=== PATIENT | female | born 1980 | race Caucasian/White ===

== ENCOUNTER 2024-05-14 13:33 | Emergency (ER) | payer OTHER, SELFPAY ==
[2024-05-14] VITALS (8 sets, daily range): BP systolic 126–146; BP diastolic 75–98; PULSE 62–80; RESP 13–21; TEMP 36.1–36.7; O2SAT 96–99; BMI 41.5
--- NOTE | 2024-05-14 13:36 | EKG12_ITS ---
Test Reason : CP Blood Pressure : / mmHG Vent. Rate : 075 BPM Atrial Rate : 075 BPM P-R Int : 180 ms QRS Dur : 080 ms QT Int : 388 ms P-R-T Axes : 035 042 022 degrees QTc Int : 433 ms Normal sinus rhythm Normal ECG Confirmed by ROBE SMITH, COLIN ([id number]), continuity editor TRACE CHU ([id number]) on 05/17/2024 1:56:36 PM Referred By: Confirmed By:COLIN NAGEL MD
--- NOTE | 2024-05-14 13:36 | RAD_ITS ---
STUDY: X-RAY CHEST REASON FOR EXAM: Female, 43 years old. chest pain TECHNIQUE: Single AP portable view of the chest. COMPARISON: 04/02/2024 FINDINGS: The lungs are clear and expanded. There is no demonstrated pleural abnormality. Normal size heart. Normal mediastinum and emelia. Normal visualized pulmonary arteries. Normal visualized aortic arch and descending thoracic aorta. There is a levoscoliosis of the thoracic spine. Normal visualized ribs, clavicles, and shoulders. There is no demonstrated abnormality of the visualized soft tissue structures of the upper abdomen. RAD/Chest 1 View (Portable) IMPRESSION: Normal x-ray examination of the chest. Electronically Signed: Fabio Abebe MD at 16:42 EDT ,
[2024-05-14 13:53] LABS: Absolute Lymphocyte Count 2.54 X10^3/uL (0.83-4.51); Absolute Neutrophil Count 5.1 X10^3/uL (2.0-7.7); Basophil# 0.03 X10^3/uL; Basophil% 0.4 % (0-1); Eosinophil# 0.15 X10^3/uL; Eosinophils% 1.8 % (0-5); Hematocrit 44.1 % (37-47); Hemoglobin 14.7 g/dL (12.0-15.0); Lymphocyte # 2.54 X10^3/ul (0.83-4.51); Lymphocyte % 30.6 % (19-41); Mean Corp Hgb Conc 33.3 g/dL (32-36); Mean Corpuscular Hgb 30.7 pg (27.0-32.0); Mean Corpuscular Volume 92.1 fL (81-99); Mean Platelet Vol. 9.7 fl (6.2-12.0); Monocyte# 0.46 X10^3/uL; Monocyte% 5.5 % (0-10); NRBC Flagged by Analyzer 0 % (0-5); Neutrophil # 5.08 X10^3/uL (2.7-7.7); Neutrophil % 61.3 % (47-70); Platelet Count 341 K/mm3 (150-450); RBC Distribution Width CV 11.9 % (11.6-14.6); RBC Distribution Width SD 39.9 fl (35.1-43.9); Red Blood Count 4.79 M/mm3 (4.2-5.4); White Blood Count 8.3 K/mm3 (4.4-11.0)
[2024-05-14 14:11] LABS: Anion Gap 9 (5-15); BUN 14 mg/dL (7-18); BUN/Creat Ratio 12.8 RATIO (10-20); Calcium,Total 9.5 mg/dL (8.5-10.1); Chloride 106 mmol/L (98-107); Creatinine, Serum 1.09 mg/dL (0.55-1.02); EST Glomerular Filtration Rate 59 mL/min (>60); Est Glom Filt Rate - Afr Amer 71 mL/min (>60); Estimated Creatinine Clearance 82.33 ml/min; Glucose 157 mg/dL (74-106); Potassium 3.9 mmol/L (3.5-5.1); Sodium Level 138 mmol/L (136-145); Troponin-I HS (w/2H Reflex) 5 pg/mL (3.0-54.0)
--- NOTE | 2024-05-14 15:11 | EDS_ITS ---
HPI History of Present Illness Chief Complaint: Chest Pain Narrative Narrative: Chief complaint and HPI: Chest pain. 43-year-old female with history of HTN, HLD presents for evaluation of chest pain. Onset of symptoms about 30 minutes prior to arrival. Patient states she was waiting in line for food when she developed sharp midsternal chest pain. Pain does not radiate anywhere. Not worse with inspiration or exertion. Admits to some mild shortness of breath. Already improving. She denies any fever, chills, URI symptoms, abdominal pain, nausea, vomiting, dysuria. Patient does vape with nicotine. Patient does endorse having 2 episodes of diarrhea today. Denies a history of DVT/PE, blood clotting disorder, recent trauma or surgery, unilateral leg swelling, known malignancy, travel. Review of systems: See HPI Medications: As listed on the chart Allergies: As listed on the chart PFSH: Per chart Vital signs: As listed on the chart. Reviewed. Physical exam: Gen: A&O x3, NAD Head: Normocephalic, atraumatic Eyes: No sclera icterus, conjunctiva clear ENT: Moist mucous membranes Neck: Trachea midline, No JVD CV: RRR, no murmurs, midsternal chest pain slightly reproducible per patient with palpation, no peripheral edema Resp: Lungs CTA BL, no w/r/c GI: Abd soft, non-distended, non-tender, no r/r/g Musc: Full ROM, no deformity Skin: Warm, dry Neuro: Alert, oriented, grossly intact, sensation intact Psych: Cooperative, appropriate mood and affect [facility] Medical History (Updated 05/14/24 @ 14:25 by Geraldine Miller) Hypertension Chronic pain Anxiety and depression Allergy/AdvReac Type Severity Reaction Status Date / Time varenicline (From Chantix) Allergy Severe Other Verified 05/14/24 13:35 desogestrel (From Reclipsen AdvReac Intermediate Other Verified 05/14/24 13:35 ()) ethinyl estradiol (From AdvReac Intermediate Other Verified 05/14/24 13:35 Reclipsen (28)) Social History Smoking Status: Current every day smoker tobacco type: e-cigarettes EXAM Physical Exam Const Vital Signs: 05/14/24 13:35 05/14/24 13:46 05/14/24 14:24 Temperature 97 F L Temperature Source Temporal Pulse Rate 80 Respiratory Rate 18 Respiratory Effort Normal Blood Pressure 146/98 H Blood Pressure Mean 114 Pulse Ox 96 98 Oxygen Delivery Method Room Air Room Air 05/14/24 14:34 05/14/24 15:00 05/14/24 16:00 Temperature Temperature Source Pulse Rate 72 73 62 Respiratory Rate 18 21 H 16 Respiratory Effort Blood Pressure 130/75 H 126/84 H 133/84 H Blood Pressure Mean 93 98 100 Pulse Ox 99 98 96 Oxygen Delivery Method Room Air Room Air Room Air 05/14/24 17:00 05/14/24 18:00 05/14/24 18:52 Temperature 98.0 F Temperature Source Pulse Rate 68 65 66 Respiratory Rate 13 20 H 18 Respiratory Effort Blood Pressure 129/85 H 134/80 H 130/86 H Blood Pressure Mean 99 98 100 Pulse Ox 97 97 99 Oxygen Delivery Method Room Air MDM MDM MDM Narrative Medical decision making narrative: 43-year-old female presents for evaluation of sharp midsternal chest pain. Chest pain is improving. Chest pain is atypical in nature. Vitals show mild hypertension but otherwise is unremarkable. Differential diagnosis includes but is not limited to costochondritis, musculoskeletal strain, ACS, PE, arrhythmia. Cardiac workup ordered. EKG and chest x-ray reviewed see below. CBC without l eukocytosis or anemia. BMP relatively unremarkable except for mild renal insufficiency of 1.09. Patient may be mildly dehydrated from her diarrhea. D- dimer elevated at 0.66. CTA chest ordered to assess for PE. CTA chest without PE or dissection. Troponin unremarkable x 2. On reexamination, patient states her chest pain has resolved. She is currently asymptomatic. Her heart score is a 3 which puts her at a low risk for ACS. At this point in time no clear etiology for patient's chest pain. Given her unremarkable cardiac workup as well as resolved symptoms. Patient is stable to discharge home. Follow-up with her PCP. Return precautions explained. She confirmed understanding of plan. EKG: Interpreted by me/EM physician: EKG shows normal sinus rhythm without any acute ischemic changes. Heart rate 75. Diagnostic: Interpreted by me/EM physician: Chest x-ray without pneumonia, effusion, cardiomegaly, pneumothorax Impression: 1. Chest pain, resolved 2. Mild renal insufficiency Lab Data Labs: Laboratory Results - last 24 hr 05/14/24 05/14/24 05/14/24 13:45 15:31 15:56 WBC 8.3 RBC 4.79 Hgb 14.7 Hct 44.1 MCV 92.1 MCH 30.7 MCHC 33.3 RDW Std Deviation 39.9 RDW Coeff of Sukumar 11.9 Plt Count 341 MPV 9.7 Immature Gran % (Auto) 0.400 Neut % (Auto) 61.3 Lymph % (Auto) 30.6 Hood % (Auto) 5.5 Eos % (Auto) 1.8 Baso % (Auto) 0.4 Absolute Neuts (auto) 5.1 Absolute Lymphs (auto) 2.54 Nucleated RBC % 0 D-Dimer Quant (PE/DVT) 0.66 H* Sodium 138 Potassium 3.9 Chloride 106 Carbon Dioxide 23.0 Anion Gap 9 BUN 14 Creatinine 1.09 H Estim Creat Clear Calc 82.33 Est GFR (MDRD) Af Amer 71 Est GFR (MDRD) Non-Af 59 L BUN/Creatinine Ratio 12.8 Glucose 157 H Calcium 9.5 Troponin I High Sens 5 4 Radiography Diagnostic Testing: Clinical Impression(s) from Imaging Studies Chest X-Ray 05/14/24 13:36 IMPRESSION: Normal x-ray examination of the chest. Electronically Signed: Fabio Abebe MD at 16:42 EDT , Chest CTA 05/14/24 15:54 IMPRESSION: undefined Discharge Plan Triage Chief Complaint: Chest Pain ED Provider: Frank Church Dx/Rx/DC Orders Instructions: Chest Pain [facility] Primary Care Provider: [facility] Referrals: [place] [Primary Care Provider] - 3-5 Days Activity Restrictions/Additional Instructions: Return back to the ED if symptoms recur or change Print Language: [place] Disposition Disposition: Home, Self Care Discharge Date/Time: 05/14/24 18:53
[2024-05-14] MEDS: 0.9% Normal Saline (1000mL) 1,000 ML 999 ML IV (15:36)
[2024-05-14 15:49] LABS: Reflex Troponin-HS? (from REC) Y
[2024-05-14 15:53] LABS: D-Dimer Quantitative (DVT/PE) 0.66 FEU/ug/m (0.27-0.49)
--- NOTE | 2024-05-14 15:54 | CT_ITS ---
STUDY: CTA CHEST REASON FOR EXAM: Female, 43 years old. Elevated dimer, shotness of breath, assess for PE RADIATION DOSAGE (If Supplied By Facility): CTDIvol = ( 13.81 ) mGy, DLP = ( 550.11 ) mGycm TECHNIQUE: The examination was performed with the intravenous administration of IV 100mL Isovue-370. Post-processing of the angiographic images was performed, with multiplanar reformation and 3D reconstruction. Individualized dose optimization techniques were used for this CT. COMPARISON: None. FINDINGS: Tubes and lines: 1. No life-support noted. CTA: PULMONARY ARTERIES: There is normal configuration and contrast opacification of pulmonary outflow tract, main pulmonary arteries, segmental and intersegmental pulmonary arteries bilaterally without evidence of intraluminal filling defects. AORTIC ARCH: The aortic arch and descending aorta have normal configuration. No evidence of dissection or aneurysmal dilatation. HEART: Cardiac contour is normal. No evidence pericardial effusion. CT CHEST: LUNGS: [Unremarkable. No mass. No consolidation. PLEURAL SPACES: Unremarkable, no effusion or pneumothorax.. MEDIASTINUM AND LYMPH NODES: Unremarkable. No significant adenopathy. BONES: Unremarkable ABDOMEN: There is diffuse hepatic steatosis without focal hepatic masses. Postop changes of prior cholecystectomy. Other: None IMPRESSIONS: 1. No CTA evidence of pulmonary embolism. 2. No CTA evidence of aortic aneurysm or dissection 3. Normal CT appearance of the heart and pericardium. 4. No focal infiltrate consolidation or effusion noted. 5. Hepatic steatosis without hepatic masses. Postop changes of prior cholecystectomy. Electronically Signed: Fabio Kaur MD at 17:24 EDT , CT/CTA Chest W/WO Contrast IMPRESSION: undefined
[2024-05-14 16:25] LABS: Troponin-I HS 4 pg/mL (3.0-54.0)
== END 2024-05-14 18:53 | disposition home or self-care (01) ==
PROVIDERS: Emergency Provider Surgery; Visit Provider Surgery
DX: R07.89 Other chest pain (principal); R06.02 Shortness of breath; F17.290 Nicotine dependence, other tobacco product, uncomplicated; I10 Essential (primary) hypertension; E78.5 Hyperlipidemia, unspecified; R19.7 Diarrhea, unspecified; N28.9 Disorder of kidney and ureter, unspecified
CPT/HCPCS: 71045; 71275; 80048; 84484; 85025; 85379; 93005; 96360; 99284; J7030; Q9967; A4216